=== PATIENT | female | born 1980 | race Two or more races ===

== ENCOUNTER 2017-05-01 18:27 | Emergency (ER) | payer MEDICAID ==
[~2017-05-01] VITALS: Ht 170.2 cm; Wt 100.7 kg
[2017-05-01 22:41] VITALS: BP 98/47
[2017-05-01] MEDS ORDERED: TETANUS-DIPTH-ACEL PERTUSSIS 0.5ML SYRG IM ONE (23:00)
== END 2017-05-01 23:10 | disposition home or self-care (01) ==
LOC: ER 18:27
DX: S66.4 Injury of intrinsic muscle, fascia and tendon of thumb at wrist and hand level (principal); W26.0XXA Contact with knife, initial encounter; Y93.89 Activity, other specified; Y92.89 Other specified places as the place of occurrence of the external cause; Y99.8 Other external cause status
CPT/HCPCS: 90471; 90715

== ENCOUNTER → 2018-10-28 | Outpatient (CLI) | payer MEDICAID ==
[~2018-10-28] VITALS: Ht 167.6 cm; Wt 99.8 kg
[~2018-10-28] MED LIST: ADENOSINE 84 MG in GIVE UN-DILUTED 0 ML IV ONE; ADENOSINE 90 MG/30 ML INJ IV ONE
== END | disposition home or self-care (01) ==
LOC: Rad HDHVI 08:56
PROVIDERS: ATTEND Internal Medicine Cardiovascular Disease
DX: I10 Essential (primary) hypertension (principal); E11.9 Type 2 diabetes mellitus without complications; I25.10 Atherosclerotic heart disease of native coronary artery without angina pectoris
CPT/HCPCS: 78452; 93005; 93306; 96374; 96375; A9500; J0153